=== PATIENT | female | born 1960 ===

== ENCOUNTER 2019-09-03 13:28 | Emergency (ER) | payer MEDICARE ==
[2019-09-03] MEDS ORDERED: solu-MEDROL 125 MG IM ONE (13:38)
--- NOTE | 2019-09-03 13:38 | ERPHSYRPT ---
- History of Present Illness Time Seen by Provider: 09/03/19 13:33 Source: patient Exam Limitations: no limitations Physician History: 58 y/o white female smoker, with h/o copd and htn presents from pain clinic for cough and congestion. symptoms present for a few days. pain clinic would not see pt secondary to sx and low room air oxygen levels Timing/Duration: day(s) (a few), worse Cough Quality/Degree: productive cough, sputum (yellowish) Possible Cause: occasional episodes Modifying Factors: Improves With: coughing Associated Symptoms: cough, No fever, No chills, No chest pain/soreness Allergies/Adverse Reactions: metronidazole [From Flagyl] Allergy (Verified 09/03/19 14:16) tizanidine Adverse Reaction (Verified 09/03/19 14:16) Home Medications: Lisinopril 10 mg [Zestril 10 MG] 40 mg PO DAILY 01/28/17 [History] Paroxetine HCl [Paxil] 40 mg PO HS 01/28/17 [History] Oxycodone HCl/Acetaminophen [Percocet 5-325 mg Tablet] 1 each PO Q4-6HPRN PRN [History] Furosemide 40 mg PO DAILY 09/03/19 [History] Lacosamide [Vimpat] 150 mg PO BID 09/03/19 [History] levETIRAcetam [Levetiracetam] 750 mg PO BID 09/03/19 [History] - Review of Systems Constitutional: No Symptoms Eyes: No Symptoms Ears, Nose, & Throat: No Symptoms Respiratory: Cough, Dyspnea (milod) Cardiac: No Symptoms Abdominal/Gastrointestinal: No Symptoms Genitourinary Symptoms: No Symptoms Musculoskeletal: No Symptoms Skin: No Symptoms Neurological: No Symptoms Psychological: No Symptoms Endocrine: No Symptoms Hematologic/Lymphatic: No Symptoms Immunological/Allergic: No Symptoms All Other Systems: Reviewed and Negative - Past Medical History Neurological History: No Pertinent History ENT History: No Pertinent History Cardiac History: No Pertinent History Respiratory History: No Pertinent History Endocrine Medical History: No Pertinent History Musculoskeletal History: No Pertinent History GI Medical History: No Pertinent History History: No Pertinent History Psycho-Social History: No Pertinent History Female Reproductive Disorders: No Pertinent History - Past Surgical History Neuro Surgical History: No Pertinent History Cardiac: No Pertinent History Respiratory: No Pertinent History Gastrointestinal: No Pertinent History Genitourinary: No Pertinent History Musculoskeletal: No Pertinent History Female Surgical History: No Pertinent History - Social History Smoking Status: Current every day smoker - Nursing Vital Signs Nursing Vital Signs: Initial Vital Signs Temperature 98.3 F 09/03/19 13:30 Pulse Rate 80 09/03/19 13:30 Respiratory Rate 17 09/03/19 13:30 Blood Pressure 203/100 09/03/19 13:30 O2 Sat by Pulse Oximetry 99 09/03/19 13:30 Pain Scale Pain Intensity 0 - Physical Exam General Appearance: mild distress, alert, anxiety Eye Exam: PERRL/EOMI, eyes nml inspection Ears, Nose, Throat Exam: normal ENT inspection, moist mucous membranes Neck Exam: normal inspection, non-tender, supple, full range of motion Respiratory Exam: airway intact, wheezing, No respiratory distress Cardiovascular Exam: regular rate/rhythm, normal heart sounds, normal peripheral pulses Gastrointestinal/Abdomen Exam: soft, normal bowel sounds, No tenderness Pelvic Exam: not done Rectal Exam: not done Back Exam: normal inspection, normal range of motion, No CVA tenderness, No vertebral tenderness Extremity Exam: normal range of motion, swelling (chronic bilat lower ext) Neurologic Exam: alert, oriented x 3, cooperative, 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 Skin Exam: normal color, warm, dry Lymphatic Exam: No adenopathy SpO2 Interpretation: borderline oxygenation O2 Delivery: Nasal Cannula - Course Nursing assessment & vital signs reviewed: Yes Ordered Tests: Active Orders 24 hr Category Date Time Status Pulse Oximetry (ED) STAT Care 09/03/19 13:38 Active CHEST 1 VIEW (PORTABLE) Stat Exams 09/03/19 13:38 Completed CULTURE,SPUTUM Stat Lab 09/03/19 13:38 Uncollected Medication Summary Discontinued Medications Generic Name Dose Route Start Last Admin Trade Name Freq PRN Reason Stop Dose Admin Albuterol/Ipratropium 3 ml 09/03/19 13:44 09/03/19 13:45 Duoneb 0.5-3 Mg/3 Ml Neb IH 09/03/19 13:45 3 ml STAT ONE Administration Albuterol/Ipratropium Confirm 09/03/19 13:44 Duoneb 0.5-3 Mg/3 Ml Neb Administered 09/03/19 13:45 Dose 3 ml IH .STK-MED ONE Ceftriaxone Sodium 1,000 mg 09/03/19 13:39 09/03/19 13:53 Rocephin 1000 Mg Inj IM 09/03/19 13:40 1,000 mg STAT ONE Administration Ceftriaxone Sodium Confirm 09/03/19 13:49 Rocephin 1000 Mg Inj Administered 09/03/19 13:50 Dose 1,000 mg .ROUTE .STK-MED ONE Lidocaine HCl Confirm 09/03/19 13:50 Xylocaine 1% Hcl 20 Ml Mdv Administered 09/03/19 13:51 Dose 2 ml .ROUTE .STK-MED ONE Methylprednisolone Sodium Succinate 125 mg 09/03/19 13:38 09/03/19 13:53 Solu-Medrol 125 Mg IM 09/03/19 13:39 125 mg STAT ONE Administration Methylprednisolone Sodium Succinate Confirm 09/03/19 13:50 Solu-Medrol 125 Mg Administered 09/03/19 13:51 Dose 125 mg .ROUTE .STK-MED ONE - Progress Progress: improved, re-examined Air Movement: good Progress Note: 09/03/19 14:19 cxr-mild infiltrate vs atelectasis right base Blood Culture(s) Obtained: No Antibiotics given: Yes Counseled pt/family regarding: lab results, diagnosis, need for follow-up, rad results - Departure Departure Disposition: Home Clinical Impression: Lung infiltrate, HTN (hypertension) Condition: Stable Critical Care Time: No Referrals: LASHAY ROSE [Primary Care Provider] - Additional Instructions: drink plenty of fluids. stop smoking. take medications as prescribed. follow up with primary doctor for further management Prescriptions: Albuterol 8 gm Mdi Hfa [Ventolin Hfa MDI] 8 gm IH Q4H #1 hfa.aer.ad Azithromycin 250 mg [Zithromax 250 MG TABLET] 250 mg PO ZPACK #6 tablet Prednisone 10 mg [Deltasone 10 mg] 10 mg PO TID #12 tablet
[2019-09-03] MEDS ORDERED: Rocephin 1000 MG INJ IM ONE (13:39)
[2019-09-03] MEDS ORDERED: DUONEB 0.5-3 MG/3 ml Neb IH ONE ×2 (13:44)
[2019-09-03] MEDS ORDERED: Rocephin 1000 MG INJ ONE (13:49)
[2019-09-03] MEDS ORDERED: XYLOCAINE 1% HCL 20 ML MDV ONE (13:50)
[2019-09-03] MEDS ORDERED: solu-MEDROL 125 MG ONE (13:50)
--- NOTE | 2019-09-03 14:12 | XRAY ---
Indication: Short of breath. Cold symptoms 1 week. Comparison: None Portable chest demonstrates right hemidiaphragm elevation with mild right base infiltrate/atelectasis, lingula fibrosis/scarring, and a few tiny biapical calcified granulomas. Heart is not enlarged. Bony thorax intact with mild degenerative changes.
[2019-09-03] MEDS ORDERED: Catapres 0.1 MG PO ONE (14:23)
[2019-09-03] MEDS ORDERED: Catapres 0.1 MG ONE (14:25)
[2019-09-03 14:37] VITALS: PULSE 87; O2SAT 93
[2019-09-03 14:50] LABS: INFLUENZA A NEGATIVE (NEGATIVE); INFLUENZA B NEGATIVE (NEGATIVE); RESPIRATORY SYNCTIAL VIRUS NEGATIVE (Negative)
[2019-09-03 15:03] VITALS: BP 162/79
== END 2019-09-03 15:04 | disposition home or self-care (01) ==
LOC: ED 13:28
DX: R91.8 Other nonspecific abnormal finding of lung field (principal); I10 Essential (primary) hypertension
CPT/HCPCS: 71045; 87631; 94640; 94760; 96372; 99284; J0696; J2930; A9270-GY